=== PATIENT | male | born 1955 | race Caucasian/White ===

== ENCOUNTER → 2019-07-09 | Outpatient (CLI) | payer BC, MEDICARE, OTHER ==
[~2019-07-09] MED LIST: ACET500C4 PO; ACET650T11 PO; ACHYD1T PO; ASPI-624 PO; CATHETER FLUSH 10 ML SYR IV PRN; DOCU100T7 PO; ENXP100I SC; FURO40TA PO; HOLD METFORMIN - RECEIVED CONTRAST 20 ML VIAL IV SCH; IOHEXOL 350 MG/ML 100 ML (OMNIPAQUE 350) VIAL IV ONE; MULT1CAP27 PO; NF-ESOM40C PO; NS 100 ML (IVPB) BAG IV ONE; PRM25T PO; RAMI2.5C PO; ROSU10TA12 PO; TRAM50TA2 PO; TRM50T PO; WARF1TAB PO; WARF6TAB PO
[2019-07-09 12:43] LABS: BUN/CREATININE RATIO 16; CREATININE SERUM 0.97 MG/DL (0.60-1.30); GFR ESTIMATED > 60
--- NOTE | 2019-07-09 13:46 | Diagnostic Imaging Report ---
INDICATION: Carotid stenosis. COMPARISON: No priors. TECHNIQUE: Post IV contrast-enhanced CT angiogram of the neck with 2-D and 3-D reconstructions performed. FINDINGS: The visualized aortic arch is patent and non-aneurysmal. The branching pattern of the great vessels appears normal. There is some motion and artifactual degradation of the left subclavian artery, though it appears grossly unremarkable. The right subclavian artery is patent. The bilateral cervical vertebral arteries are patent. The left is the dominant vessel and the right is borderline small, but nonfocal and not pathologic. The bilateral common carotid arteries are patent. On the right, substantial mixed soft and hard plaques at the bifurcation extend into the proximal right ICA where the lumen is narrowed by 80% over a less than 1 cm length. The mid to distal third of the right ICA is patent. On the left, bulb and bifurcation plaque, predominantly soft, partially calcified, results in a 30-40% stenosis or less and is not hemodynamically significant. The remaining left cervical ICA is patent. The visualized intracranial vessels reveal no segmental occlusion, thrombus, or demonstration of aneurysm. IMPRESSION: 1. Hemodynamically significant proximal right ICA stenosis owing to mixed soft and hard plaque of at least 80%. 2. Mild non-hemodynamically significant left ICA stenosis. Patent nonfocal vertebrals. Dictated by: Dictated on workstation # [id number]
== END ==
LOC: RAD 12:11
PROVIDERS: ATTEND Internal Medicine Cardiovascular Disease
DX: I65.23 Occlusion and stenosis of bilateral carotid arteries (principal)
CPT/HCPCS: 36415; 70498; 82565; 84520

== ENCOUNTER → 2019-09-12 | Outpatient (CLI) | payer BC ==
[~2019-09-12] MED LIST changes: -CATHETER FLUSH 10 ML SYR IV PRN; -HOLD METFORMIN - RECEIVED CONTRAST 20 ML VIAL IV SCH; -IOHEXOL 350 MG/ML 100 ML (OMNIPAQUE 350) VIAL IV ONE; -NS 100 ML (IVPB) BAG IV ONE
--- NOTE | 2019-09-12 11:43 | Diagnostic Imaging Report ---
INDICATION: Ankle pain. Previous surgery. COMPARISON: None FINDINGS: 4 radiographic views of the left ankle were obtained and show postsurgical changes of previous ORIF. Partially threaded cannulated screws noted traversing the medial malleolus of the distal tibia. 2 screws are also noted traversing the distal fibula. No unexpected radiopaque foreign bodies are seen. There is no evidence of hardware fracture or failure. There are mild degenerative changes of the left ankle, but otherwise joint spaces are intact. Osseous structures are intact as well. There is no evidence acute fracture. Note is made of mild generalized soft tissue edema. IMPRESSION: 1. Postsurgical changes of the left ankle as described above. No evidence of hardware fracture or failure. 2. No acute appearing fracture or dislocation of the left ankle. Dictated by: Dictated on workstation # [id number]
== END ==
LOC: RAD FS 11:00
PROVIDERS: ATTEND Nurse Practitioner
DX: M25.572 Pain in left ankle and joints of left foot (principal); Z98.890 Other specified postprocedural states
CPT/HCPCS: 73610